=== PATIENT | male | born 1950 | race Caucasian/White ===

== ENCOUNTER 2018-10-09 11:58 | Emergency (ER) | payer MEDICARE, OTHER, MEDICAID, SELFPAY ==
[2018-10-09 11:59] VITALS: BP 186/105; PULSE 82; RESP 16; TEMP 36.3; O2SAT 99; BMI 21.2
--- NOTE | 2018-10-09 12:10 | CT_ITS ---
STUDY: CT CHEST WITHOUT CONTRAST REASON FOR EXAM: Male, 67 years old. Right rib pain following a fall. RADIATION DOSAGE (If Supplied By Facility): CTDIvol = ( 6.85 ) mGy, DLP = ( 265.34 ) mGycm TECHNIQUE: Transaxial imaging was performed without the administration of intravenous contrast material. Multiplanar coronal and sagittal images were reformatted. Individualized dose optimization techniques were used for this CT. COMPARISON: None. FINDINGS: Mild degree of emphysematous changes in the upper lobes. Mild degree of right basilar atelectasis. There is no demonstrated pleural abnormality. There are calcifications of the coronary arteries. There are multiple small lymph nodes within the mediastinum, which are normal in size and morphology most compatible with reactive lymph hyperplasia. Calcified bilateral hilar lymph nodes. Normal unenhanced pulmonary arteries. There is atherosclerotic calcification of the aortic arch with tortuosity and elongation of the aortic arch and descending thoracic aorta. I suspect a nondisplaced fracture of the posterolateral aspect of the right 10th rib. Small hiatal hernia. Calcified splenic granulomas. CT/Chest without Contrast IMPRESSION: Findings suggestive of a nondisplaced fracture along the posterior aspect of the right 10th rib. Electronically Signed: John Ritchie, at 12:38 EDT , Service support ,
--- NOTE | 2018-10-09 13:11 | ED.VISSUMM ---
- ER Visit Summary Date of Service: 10/09/18 Chief Complaint: [Injury to right chest] History of Present Illness: The patient is a 67 M [[place] to the emergency department after sustaining an injury 3 days ago. Patient states that he got up in the middle the night to use the restroom and he tripped over a shoe on the floor and fell against a dresser with the right ribs. Patient denies striking his head or loss of consciousness. Patient complains of pain with breathing. He denies any hemoptysis. He denies any fever. He denies any other injuries.] Physical Examination: [HEENT-PERRLA, EOMI. Cranial nerves II through XII grossly intact. TMs clear. Mucous membranes moist. No adenopathy. Cardiovascular-regular rate and rhythm without murmur or ectopy Lungs-clear to auscultation, chest wall stable without crepitus or subcu emphysema. Evaluation of the chest wall does reveal superficial abrasions to the right lower ribs posteriorly. Patient has tenderness to palpation. There is no subcu emphysema noted. Abdomen-normoactive bowel sounds, soft, nontender, no rebound or rigidity, no peritoneal signs. Extremities-intact ?4, normal range of motion, normal pulses, atraumatic] Test Results: [CT scan of the chest was obtained without contrast that showed a right 10th rib fracture posteriorly that is nondisplaced.] Emergency Department Course and Treatment: [Patient is now anything for pain in the department.] Treatment Plan: [Patient will be given a prescription for [place] for pain and advised to follow-up with primary care physician 5 to 7 days. Patient will be given an incentive spirometer.] Disposition: [Discharged home in stable condition] Impression: [Mechanical fall Right 10th rib fracture] This note was generated with [employer] dictation software. It may contain incorrect words, spelling, and punctuation that were not noted in review of the chart prior to signing ED Disposition - Plan for ED Patient: Referrals: Nguyễn Brown MD [Primary Care Provider] -
--- NOTE | 2018-10-09 13:13 | ED.DEP ---
ED Disposition - Plan for ED Patient: Instructions: ED Fx Rib Prescriptions: Hydrocodone Bitart/Apap 5-325 [[place] 5MG-325MG] 1 tab PO Q4H PRN PRN 2 Days #20 tab PRN Reason: Pain Referrals: Nguyễn Brown MD [Primary Care Provider] - 5-7 Days
[2018-10-09 13:37] VITALS: BP 158/78; PULSE 89; O2SAT 96
== END 2018-10-09 13:37 | disposition home or self-care (01) ==
LOC: ED 12:43
PROVIDERS: Emergency Provider Emergency Medicine; Family Provider Family Medicine; PCP Family Medicine
DX: S22.31XA Fracture of one rib, right side, initial encounter for closed fracture (principal); W01.0XXA Fall on same level from slipping, tripping and stumbling without subsequent striking against object, initial encounter; Z72.0 Tobacco use
CPT/HCPCS: 71250; 99282

== ENCOUNTER 2020-08-08 17:32 | Outpatient (RCR) | payer MEDICARE, MEDICAID, SELFPAY ==
[2020-08-08] MEDS: COVID-19 VACC, MRNA(PFIZER)/PF 30 MCG/0.3 ML SYRINGE IM (15:03)
[2020-08-29] MEDS: COVID-19 VACC, MRNA(PFIZER)/PF 30 MCG/0.3 ML SYRINGE IM (14:48)
== END 2020-11-07 23:59 ==
LOC: IMMUN 17:32
PROVIDERS: PCP Family Medicine; Visit Provider Family Medicine
DX: Z23 Encounter for immunization (principal)
CPT/HCPCS: 0001A; 0002A; 91300

== ENCOUNTER 2024-02-09 09:04 | Emergency (ER) | payer MEDICARE, MEDICAID, SELFPAY ==
[2024-02-09 09:04] VITALS: BP 161/102; PULSE 124; RESP 20; TEMP 36.6; O2SAT 98; BMI 17.9
--- NOTE | 2024-02-09 09:10 | ED.VIS.DYS ---
HPI History of Present Illness Chief Complaint: Cough PFSH PFSH Allergy/AdvReac Type Severity Reaction Status Date / Time No Known Allergies Allergy Verified 02/09/24 09:04 Social History Smoking Status: Current every day smoker EXAM Physical Exam Const Vital Signs: 02/09/24 09:04 02/09/24 09:04 02/09/24 09:33 Temperature 97.8 F Temperature Source Temporal Pulse Rate 124 H Respiratory Rate 20 H Respiratory Effort Normal Non-Labored Respiratory Depth Normal Respiratory Pattern Normal Blood Pressure 161/102 H Blood Pressure Mean 121 Pulse Ox 98 Oxygen Delivery Method Room Air Room Air Room Air 02/09/24 09:46 02/09/24 11:00 Temperature Temperature Source Pulse Rate 120 H 88 Respiratory Rate 16 28 H Respiratory Effort Respiratory Depth Respiratory Pattern Blood Pressure 140/84 H Blood Pressure Mean 99 Pulse Ox 94 Oxygen Delivery Method MDM MDM MDM Narrative Medical decision making narrative: HISTORY OF PRESENT ILLNESS: 73-year-old male Presents with cough congestion and bodyaches. Notes 2 days of the symptoms. Notes cough is productive of clear sputum. Denies any posttussive emesis. States his grandchildren have been ill with upper respiratory infections. Denies COPD but notes a prior smoking history. Denies chest pain. No shortness of breath. The patient denies recent surgery in the last 4 weeks or immobilization in the last 3 days, denies previous diagnosis of DVT or PE, hemoptysis, unilateral leg swelling or malignancy with treatment the last 6 months or palliative. No estrogen use noted. Denies any leg swelling. Denies syncope. Denies bleeding diathesis. Notes he got the pneumonia shot 12 years ago REVIEW OF SYSTEMS: Pertinent positives: Cough, shortness of breath Pertinent negatives: Chest pain PHYSICAL EXAM: Nursing triage notes reviewed, Vital signs reviewed Constitutional: please see mdm HENT: MMM Eyes: Pupils equal round and reactive to light, Extraocular muscles intact Neck: No stridor, no JVD, full neck ROM Lungs: Clear to auscultation, No wheezing or rales. No increased work of breathing, no conversational dyspnea, no accessory muscle use, no nasal flaring. No respiratory distress noted Heart: Regular rate and rhythm, No murmurs, No rubs and No gallops, 2+ distal pulses (radial, femoral, posterior tibial) in all extremities Abdomen: Soft, there is no tenderness, rigidity, rebound or guarding, no obvious peritoneal signs, no palpable pulsatile abdominal masses, no auscultated abdominal bruit : No CVAT Extremities: No edema Neuro: No focal neurological deficits, cranial nerves II through XII intact, 5/5 strength in all extremities. Intact sensation to light touch in all extremities, 2+ reflexes bilateral patella tendons. Normal gait. No ataxia. Skin: No rash or lesions noted MEDICAL DECISION MAKING: Chief Complaint: Cough External records reviewed: Imaging reviewed: Reviewed prior CT scan of the chest from 2019 was found right 10th rib fracture Factors affecting care: Pneumonia/rib fracture Social determinants of health: [Positive smoking History obtained from others: none Consults: none [facility] Narrative: The patient was initially tachycardic, tachypneic. He is afebrile. Lungs clear. No acute distress. Speaking full senses. No indication for noninvasive or invasive ventilation at this time. I considered the following differential diagnosis: COVID, pneumonia, ACS, arrhythmia, anemia, mass I obtained a broad lab and imaging workup to further elucidate etiology of the patient's complaints. I treat the patient history of 500 cc bolus to improve tachycardia and DuoNeb breathing treatment empirically given history of smoking ALL IMAGES (IF OBTAINED) HAVE BEEN PERSONALLY REVIEWED AND INTERPRETED BY MYSELF. EKG with sinus tachycardia rate of 101, normal axis, normal intervals, no STEMI, no signs of right heart strain COVID-positive likely etiology High-sensitivity troponin is negative, no evidence of myocardial ischemia CBC without leukocytosis, severe anemia, no thrombocytopenia. BMP without evidence of significant electrolyte abnormalities, no anion gap, no acute kidney injury. I have personally reviewed the patient's chest x-ray. Chest x-ray is unremarkable for pulmonary edema, pneumothorax, pneumonia or focal cardiopulmonary abnormality. Radiologist agrees my interpretation The patient was ambulated with pulse ox and maintain saturation 95% appears appropriate discharge home. Will prescribe Paxlovid The synthesis of the patient's history, his exam, labs images suggest likely COVID-19 infection as his precipitating complaint. The patient and/or family, caregivers express understanding. The patient and/or family, caregivers agrees with the plan. Shared decision making: I will have a discussion with the patient and or visitors regarding risk/benefits of further testing or admission. They will be made aware of of the risk/benefits inherent in this decision they will be given the opportunity to voice understanding. Total critical care time today provided was at least 0 [] minutes. This excludes separately billable procedures. Critical care time (if documented) is secondary to the patient having high probability of clinically significant/life threatening deterioration in the patient's condition which required my urgent intervention. Impression: 1. Cough 2. Tachycardia 3. COVID-19 infection Dispo: Discharge This note was generated with [employer] dictation software. It may contain incorrect words, spelling, and punctuation that were not noted in review of the chart prior to signing. Lab Data Labs: Laboratory Results - last 24 hr 02/09/24 09:40 WBC 7.3 RBC 4.62 Hgb 15.2 Hct 44.9 MCV 97.2 H MCH 32.9 H MCHC 33.9 RDW Std Deviation 46.1 H RDW Coeff of [place] 13.0 Plt Count 218 MPV 8.7 Immature Gran % (Auto) 0.400 Neut % (Auto) 75.4 H Lymph % (Auto) 10.1 L Mcclain % (Auto) 12.8 H Eos % (Auto) 0.1 Baso % (Auto) 1.2 H Absolute Neuts (auto) 5.5 Absolute Lymphs (auto) 0.74 L Nucleated RBC % 0 Sodium 134 L Potassium 3.9 Chloride 99 Carbon Dioxide 28.0 Anion Gap 7 BUN 11 Creatinine 1.07 Estim Creat Clear Calc 47.94 Est GFR (MDRD) Af Amer 88 Est GFR (MDRD) Non-Af 72 BUN/Creatinine Ratio 10.3 Glucose 98 Calcium 8.9 Troponin I High Sens 5 Radiography Diagnostic Testing: Clinical Impression(s) from Imaging Studies Chest X-Ray 02/09/24 09:56 IMPRESSION: COPD changes. No active pulmonary disease. Electronically Signed: Steffen Nair MD at 10:39 EDT , Discharge Plan Triage Chief Complaint: Cough ED Provider: Robert Boyd Dx/Rx/DC Orders Primary Care Provider: Nguyễn Brown Referrals: Nguyễn Brown MD [Primary Care Provider] - Print Language: Thai
--- NOTE | 2024-02-09 09:33 | EKG12_ITS ---
Test Reason : SOB Blood Pressure : / mmHG Vent. Rate : 101 BPM Atrial Rate : 101 BPM P-R Int : 142 ms QRS Dur : 072 ms QT Int : 334 ms P-R-T Axes : 081 016 064 degrees QTc Int : 433 ms Sinus tachycardia Otherwise normal ECG Confirmed by ALYSHA BALDERAS, LIZET ([id number]), newspaper editor managing PAT GODDARD ([id number]) on 02/12/2024 9:22:36 AM Referred By: Confirmed By:LIZET ENCARNACION MD
[2024-02-09] MEDS: Ipratropium/Albuterol Sulfate 3 ML AMPUL.NEB INHALATION (09:39)
[2024-02-09] MEDS: 0.9% Normal Saline (500mL Bag) 500 ML 999 ML IV (09:45)
[2024-02-09 09:46] VITALS: PULSE 120; RESP 16
[2024-02-09 09:46] LABS: Absolute Lymphocyte Count 0.74 X10^3/uL (0.83-4.51); Absolute Neutrophil Count 5.5 X10^3/uL (2.0-7.7); Basophil# 0.09 X10^3/uL; Basophil% 1.2 % (0-1); Eosinophil# 0.01 X10^3/uL; Eosinophils% 0.1 % (0-5); Hematocrit 44.9 % (40-54); Hemoglobin 15.2 g/dL (13.0-16.5); Lymphocyte # 0.74 X10^3/ul (0.83-4.51); Lymphocyte % 10.1 % (19-41); Mean Corp Hgb Conc 33.9 g/dL (32-36); Mean Corpuscular Hgb 32.9 pg (27.0-32.0); Mean Corpuscular Volume 97.2 fL (80-94); Mean Platelet Vol. 8.7 fl (6.2-12.0); Monocyte# 0.94 X10^3/uL; Monocyte% 12.8 % (0-10); NRBC Flagged by Analyzer 0 % (0-5); Neutrophil # 5.51 X10^3/uL (2.7-7.7); Neutrophil % 75.4 % (47-70); Platelet Count 218 K/mm3 (150-450); RBC Distribution Width SD 46.1 fl (35.1-43.9); Red Blood Count 4.62 M/mm3 (4.6-6.2); White Blood Count 7.3 K/mm3 (4.4-11.0)
--- NOTE | 2024-02-09 09:56 | RAD_ITS ---
INDICATION: Cough EXAMINATION/TECHNIQUE: X-RAY - XR Chest 2 Views COMPARISON: Prior study dated: 04/28/2012 FINDINGS: LINES/DEVICES: None. LUNGS: The lungs are hyperinflated with COPD changes. No focal infiltrate is seen. No evidence of pleural effusions. MEDIASTINUM AND CARDIOVASCULAR STRUCTURES: Cardiac silhouette not enlarged. Central airways and mediastinal contour are unremarkable. BONES AND SOFT TISSUES: Unremarkable. RAD/Chest PA and Lateral IMPRESSION: COPD changes. No active pulmonary disease. Electronically Signed: Steffen Nair MD at 10:39 EDT ,
[2024-02-09 10:03] LABS: Anion Gap 7 (5-15); BUN 11 mg/dL (7-18); BUN/Creat Ratio 10.3 RATIO (10-20); Calcium,Total 8.9 mg/dL (8.5-10.1); Chloride 99 mmol/L (98-107); Creatinine, Serum 1.07 mg/dL (0.70-1.30); EST Glomerular Filtration Rate 72 mL/min (>60); Est Glom Filt Rate - Afr Amer 88 mL/min (>60); Estimated Creatinine Clearance 47.94 ml/min; Glucose 98 mg/dL (74-106); Potassium 3.9 mmol/L (3.5-5.1); Sodium Level 134 mmol/L (136-145); Troponin-I HS 5 pg/mL (3.0-78.0)
[2024-02-09 10:51] VITALS: O2SAT 95
[2024-02-09 11:00] VITALS: BP 140/84; PULSE 88; RESP 28; O2SAT 94
[2024-02-09 11:40] VITALS: BP 140/84; PULSE 88; RESP 28; TEMP 36.7; O2SAT 94
== END 2024-02-09 11:41 | disposition home or self-care (01) ==
PROVIDERS: Emergency Provider Emergency Medicine; PCP Family Medicine; Visit Provider Emergency Medicine
DX: U07.1 COVID-19 (principal); J44.9 Chronic obstructive pulmonary disease, unspecified; S22.31XS Fracture of one rib, right side, sequela; R00.0 Tachycardia, unspecified; R05.9 Cough, unspecified; F17.200 Nicotine dependence, unspecified, uncomplicated
CPT/HCPCS: 71046; 80048; 84484; 85025; 87631; 93005; 94640; 99283